=== PATIENT | male | born 1985 | race African-American/Black ===

== ENCOUNTER 2024-11-30 18:25 | Emergency (ER) | payer SELFPAY ==
[~2024-11-30] VITALS: Ht 182.9 cm; Wt 68.0 kg
[2024-11-30 18:29] VITALS: BP 126/64; PULSE 70; RESP 18; TEMP 36.9; O2SAT 99
[2024-11-30 19:07] LABS: HEMATOCRIT. 46.7 % (42.0-52.0); HEMOGLOBIN. 15.6 g/dL (14.0-18.0); MEAN CORPUSCULAR HEMOGLOBIN 31.6 pg (28.0-32.0); MEAN CORPUSCULAR HGB CONC 33.3 g/dL (31.0-37.0); MEAN CORPUSCULAR VOLUME 94.8 fL (80.0-94.0); MEAN PLATELET VOLUME 7.5 fl (7.4-10.4); PLATELET 299 x1000/uL (130-400); RED BLOOD CELL COUNT 4.93 mill/uL (4.7-6.1); RED CELL DISTRIBUTION WIDTH 14.6 % (11.6-14.6); WHITE BLOOD COUNT 9.5 x1000/uL (4.5-11.0)
[2024-11-30 19:08] LABS: DIFFERENTIAL COMMENT 1
[2024-11-30 19:17] LABS: INR 1.1; PROTHROMBIN TIME 11.6 sec (9.6-11.0)
[2024-11-30 19:20] LABS: CHLORIDE 105 mEq/L (98-107); POTASSIUM 3.6 mEq/L (3.5-5.1); SODIUM 141 mEq/L (136-145)
[2024-11-30 19:21] LABS: CALCIUM 9.8 mg/dL (8.7-10.4); CARBON DIOXIDE 27 mEq/L (21-32)
[2024-11-30 19:26] LABS: GLUCOSE 129 mg/dL (70-105); UREA NITROGEN BLOOD 12 mg/dL (9-23)
[2024-11-30 19:27] LABS: ETHANOL BLOOD < 10 mg/dL (<10); TROPONIN I HIGH SENSITIVITY < 4 ng/L (3.0-53)
[2024-11-30 19:28] LABS: ALANINE AMINOTRANSFERASE 21 IU/L (10-49); ALBUMIN 4.5 g/dL (3.2-4.8); ASPARTATE AMINOTRANSFERASE 21 IU/L (<34); BILIRUBIN DIRECT 0.1 mg/dL (<=3.0); BILIRUBIN TOTAL 0.5 mg/dL (0.1-1.0); PROTEIN TOTAL 6.9 g/dL (6.0-8.3)
[2024-11-30] MEDS: SODIUM CHLORIDE 0.9% 1,000 ML IV ONE (19:46)
[2024-11-30 19:56] LABS: PLATELET ESTIMATE NORMAL
[2024-11-30 20:00] LABS: CREATINE KINASE 144 IU/L (46-171)
== END 2024-11-30 23:37 | disposition home or self-care (01) ==
LOC: ER 18:52
DX: R53.1 Weakness (principal); Z59.00 Homelessness unspecified
CPT/HCPCS: 80076; 80048; 80320; 82550; 83690; 85025; 85610; 84484; 36415; 93005; 96360; 99284; J7030; Z7610; G0480